=== PATIENT | male | born 1960 | race Caucasian/White ===

== ENCOUNTER 2024-12-22 20:41 | Inpatient (IN) | payer MEDICAID ==
[~2024-12-22] VITALS: Ht 167.6 cm; Wt 83.6 kg
[2024-12-22 21:32] LABS: CHLORIDE 104 mEq/L (98-107); POTASSIUM 4.4 mEq/L (3.5-5.1); SODIUM 139 mEq/L (136-145)
[2024-12-22 21:33] LABS: CALCIUM 9.6 mg/dL (8.7-10.4); CARBON DIOXIDE 27 mEq/L (21-32)
[2024-12-22 21:34] LABS: BASOPHILS % 0.5 % (0.0-2.0); EOSINOPHILS % 4.6 % (0.0-5.0); HEMATOCRIT. 46.1 % (42.0-52.0); HEMOGLOBIN. 15.4 g/dL (14.0-18.0); LYMPHOCYTES % 31.1 % (20.0-50.0); MEAN CORPUSCULAR HEMOGLOBIN 30.4 pg (28.0-32.0); MEAN CORPUSCULAR HGB CONC 33.3 g/dL (31.0-37.0); MEAN CORPUSCULAR VOLUME 91.2 fL (80.0-94.0); MEAN PLATELET VOLUME 9.2 fl (7.4-10.4); MONOCYTES % 10.9 % (2.0-8.0); NEUTROPHILS % 52.9 % (40.0-76.0); PLATELET 267 x1000/uL (130-400); RED BLOOD CELL COUNT 5.06 mill/uL (4.7-6.1); RED CELL DISTRIBUTION WIDTH 14.8 % (11.6-14.6); WHITE BLOOD COUNT 5.2 x1000/uL (4.5-11.0)
[2024-12-22 21:38] LABS: CREATININE 1.3 mg/dL (0.6-1.3); GLUCOSE 93 mg/dL (70-105); UREA NITROGEN BLOOD 18 mg/dL (9-23)
[2024-12-22 21:39] LABS: TROPONIN I HIGH SENSITIVITY 6 ng/L (3.0-53)
[2024-12-22 21:40] LABS: ALANINE AMINOTRANSFERASE 17 IU/L (10-49); ALBUMIN 4.2 g/dL (3.2-4.8); ASPARTATE AMINOTRANSFERASE 19 IU/L (<34); BILIRUBIN DIRECT 0.2 mg/dL (<=3.0); BILIRUBIN TOTAL 0.6 mg/dL (0.1-1.0); PROTEIN TOTAL 7.3 g/dL (6.0-8.3)
[2024-12-22] MEDS: METHYLPREDNISOLONE SOD SUCC 125MG/2ML (ACT-O-VIAL) IV STA (21:40)
[2024-12-22 21:45] LABS: INR 1.1; PROTHROMBIN TIME 11.5 sec (9.6-11.0)
[2024-12-22] MEDS: ALBUTEROL (0.083%) 2.5MG/3ML NEB HHN STA (22:16)
[2024-12-22 22:17] VITALS: PULSE 86; RESP 20; O2SAT 99
[2024-12-22] MEDS: IPRATROPIUM BROMIDE (0.02%) 0.5MG/2.5ML NEB HHN STA (22:17)
[2024-12-23] VITALS (7 sets, daily range): BP systolic 95–126; BP diastolic 59–82; PULSE 77–102; RESP 18–20; TEMP 36.5–37.4; O2SAT 94–100
[2024-12-23] MEDS: LEVOFLOXACIN 750MG PREMIX 150 ML IV ONE (01:43)
[2024-12-23 04:20] LABS: TROPONIN I HIGH SENSITIVITY 4 ng/L (3.0-53)
[2024-12-23] MEDS ORDERED: VENL150C52 PO (05:28)
[2024-12-23] MEDS ORDERED: OMEP40CA20 PO (05:28)
[2024-12-23] MEDS ORDERED: ATOR20TA65 PO (05:28)
[2024-12-23] MEDS ORDERED: GABA-1180 PO (05:28)
[2024-12-23] MEDS ORDERED: MIRT-90 PO (05:28)
[2024-12-23] MEDS ORDERED: BICT1TAB PO (05:28)
[2024-12-23] MEDS ORDERED: LOSA100T33 PO (05:28)
[2024-12-23 07:07] LABS: HEMATOCRIT. 44.4 % (42.0-52.0); HEMOGLOBIN. 14.9 g/dL (14.0-18.0); MEAN CORPUSCULAR HGB CONC 33.6 g/dL (31.0-37.0); MEAN CORPUSCULAR VOLUME 89.4 fL (80.0-94.0); MEAN PLATELET VOLUME 9.3 fl (7.4-10.4); PLATELET 236 x1000/uL (130-400); RED BLOOD CELL COUNT 4.97 mill/uL (4.7-6.1); RED CELL DISTRIBUTION WIDTH 14.8 % (11.6-14.6); WHITE BLOOD COUNT 5.8 x1000/uL (4.5-11.0)
[2024-12-23] MEDS: PANTOPRAZOLE 40MG DR TABLET PO SCH (07:11)
[2024-12-23 07:53] LABS: HEPATITIS C AB NON REACTIVE (Neg) (Negative)
[2024-12-23 07:58] LABS: CHLORIDE 104 mEq/L (98-107); POTASSIUM 4.2 mEq/L (3.5-5.1); SODIUM 139 mEq/L (136-145)
[2024-12-23 07:59] LABS: CALCIUM 9.3 mg/dL (8.7-10.4); CARBON DIOXIDE 25 mEq/L (21-32)
[2024-12-23 08:04] LABS: CREATININE 0.9 mg/dL (0.6-1.3); GLUCOSE 143 mg/dL (70-105); UREA NITROGEN BLOOD 16 mg/dL (9-23)
[2024-12-23] MEDS: GABAPENTIN 300MG CAPSULE PO SCH (08:49)
[2024-12-23] MEDS: VENLAFAXINE HCL 50MG TABLET PO SCH (08:49)
[2024-12-23] MEDS: ENOXAPARIN 40MG/0.4ML SYR SUBCUT SCH (08:49)
[2024-12-23] MEDS: ATORVASTATIN CALCIUM 20MG TABLET PO SCH (08:50)
[2024-12-23] MEDS ORDERED: MEDICATION NOT ON FORMULARY EA (Omeprazole 1 CAP) PO SCH (09:00)
[2024-12-23] MEDS ORDERED: VENLAFAXINE HCL PO SCH (09:00)
[2024-12-23] MEDS: LOSARTAN 100 MG TABLET PO SCH (09:00)
[2024-12-23 09:08] LABS: DIFFERENTIAL COMMENT 1
[2024-12-23] MEDS: METHYLPREDNISOLONE SOD SUCC 40MG/ML (ACT-O-VIAL) IV SCH (11:03)
[2024-12-23 11:54] LABS: *AMPHETAMINES SCREEN URINE NEGATIVE (NEGATIVE); *BARBITURATES SCREEN URINE NEGATIVE (NEGATIVE); *BENZODIAZEPINES SCREEN URINE NEGATIVE (NEGATIVE); *COCAINE SCREEN URINE PRESUMPTIVE POSITIVE (NEGATIVE)
[2024-12-23 11:55] LABS: CANNABINOID URINE SCREEN NEGATIVE (NEGATIVE); ECSTASY MDMA SCREEN URINE NEGATIVE (NEGATIVE); METHADONE URINE SCREEN NEGATIVE (NEGATIVE); OPIATES URINE SCREEN PRESUMPTIVE POSITIVE (NEGATIVE); PHENCYCLIDINE URINE SCREEN NEGATIVE (NEGATIVE)
[2024-12-23] MEDS: IPRATROPIUM/ALBUTEROL 0.5-3(2.5)MG/3ML NEB HHN SCH (14:35)
[2024-12-23 15:43] LABS: PLATELET ESTIMATE NORMAL
[2024-12-23] MEDS: BIKTARVY PO SCH (18:13)
[2024-12-23] MEDS: MIRTAZAPINE 15MG TABLET PO SCH (21:02)
[2024-12-23 21:28] LABS: HEPATITIS B SURFACE ANTIGEN REACTIVE PEND CONFIR (Negative)
[2024-12-23] MEDS: GUAIFENESIN-DM 200MG-20MG/10ML UDC PO PRN (21:59)
[2024-12-24] VITALS (10 sets, daily range): BP systolic 94–113; BP diastolic 58–73; PULSE 79–105; RESP 16–20; TEMP 36.6–37.3; O2SAT 90–98
[2024-12-24] MEDS: LEVOFLOXACIN 250MG TABLET PO SCH (14:21)
[2024-12-24] MEDS ORDERED: LEVO750T68 MT (21:32)
[2024-12-25] VITALS (7 sets, daily range): BP systolic 97–118; BP diastolic 60–72; PULSE 75–102; RESP 16–20; TEMP 36.6–37.1; O2SAT 96–100
[2024-12-25 06:25] LABS: CALCIUM 9.3 mg/dL (8.7-10.4); CARBON DIOXIDE 27 mEq/L (21-32); CHLORIDE 102 mEq/L (98-107); POTASSIUM 3.8 mEq/L (3.5-5.1); SODIUM 138 mEq/L (136-145)
[2024-12-25 06:31] LABS: CREATININE 1.1 mg/dL (0.6-1.3); GLUCOSE 90 mg/dL (70-105); UREA NITROGEN BLOOD 23 mg/dL (9-23)
[2024-12-25 06:51] LABS: BASOPHILS % 0.1 % (0.0-2.0); EOSINOPHILS % 0.1 % (0.0-5.0); HEMATOCRIT. 42.5 % (42.0-52.0); HEMOGLOBIN. 14.2 g/dL (14.0-18.0); LYMPHOCYTES % 9.6 % (20.0-50.0); MEAN CORPUSCULAR HEMOGLOBIN 30.1 pg (28.0-32.0); MEAN CORPUSCULAR HGB CONC 33.6 g/dL (31.0-37.0); MEAN CORPUSCULAR VOLUME 89.6 fL (80.0-94.0); MONOCYTES % 6.4 % (2.0-8.0); NEUTROPHILS % 83.8 % (40.0-76.0); PLATELET 241 x1000/uL (130-400); RED BLOOD CELL COUNT 4.74 mill/uL (4.7-6.1); RED CELL DISTRIBUTION WIDTH 15.1 % (11.6-14.6); WHITE BLOOD COUNT 9.1 x1000/uL (4.5-11.0)
[2024-12-26 09:11] LABS: HBSAG SCREEN Confirm. indicated (Negative)
[2024-12-26 13:08] LABS: HBSAG CONFIRMATION Positive (.)
[2024-12-27 04:07] LABS: *HIV-1 RNA BY PCR <20 copies/mL (.)
== END 2024-12-25 14:50 | disposition home or self-care (01) | DRG 892 ==
LOC: ER 20:41 → 7WST 12-23 02:52 → EDBEDREQ 12-23 03:37 → EDBEDREQTM 12-23 03:37
PROVIDERS: ADMIT Internal Medicine; ATTEND Internal Medicine
DX: J96.21 Acute and chronic respiratory failure with hypoxia (principal); B20 Human immunodeficiency virus [HIV] disease; J18.9 Pneumonia, unspecified organism; J44.1 Chronic obstructive pulmonary disease with (acute) exacerbation; Z20.822 Contact with and (suspected) exposure to COVID-19; F14.90 Cocaine use, unspecified, uncomplicated; I10 Essential (primary) hypertension; F17.210 Nicotine dependence, cigarettes, uncomplicated; Z88.0 Allergy status to penicillin
CPT/HCPCS: 36415; 71045; 80048; 80076; 80305; 83880; 84145; 84484; 85025; 86705; 87340; 87426; 87536; 93005; 94070; 94640; 94664; 99291; A4606; J1650; J1956; J2919; J2920

== ENCOUNTER 2025-01-16 12:23 | Emergency (ER) | payer MEDICAID ==
[~2025-01-16] VITALS: Ht 170.2 cm; Wt 81.0 kg
[~2025-01-16 12:23] MED LIST: ATOR20TA65 PO; BICT1TAB PO; GABA-1180 PO; LEVO750T68 MT; LOSA100T33 PO; MIRT-90 PO; OMEP40CA20 PO; VENL150C52 PO
[2025-01-16 12:25] VITALS: O2SAT 95
[2025-01-16] MEDS: ACETAMINOPHEN 500MG TABLET PO ONE (14:40)
[2025-01-16] MEDS: CYCLOBENZAPRINE 10MG TABLET PO ONE (14:40)
[2025-01-16] MEDS ORDERED: CYCL10TA21 MT (14:55)
[2025-01-16 15:19] VITALS: BP 130/86; PULSE 90; RESP 17; TEMP 36.9; O2SAT 95
== END 2025-01-16 15:20 | disposition home or self-care (01) ==
LOC: ER 12:23
DX: I83.892 Varicose veins of left lower extremity with other complications (principal); I10 Essential (primary) hypertension; J44.9 Chronic obstructive pulmonary disease, unspecified; F15.90 Other stimulant use, unspecified, uncomplicated; Z79.899 Other long term (current) drug therapy
CPT/HCPCS: 73552; 93971; 99284